=== PATIENT | male | born 1965 | race African-American/Black ===

== ENCOUNTER 2020-01-09 15:24 | Inpatient (IN) | payer MEDICARE, MEDICAID, OTHER ==
[~2020-01-09] VITALS: Ht 180.3 cm; Wt 162.5 kg
[2020-01-09] MEDS ORDERED: FUROSEMIDE 100MG/10ML VIAL IVP ONE (17:00)
[2020-01-09 17:29] LABS: BASOPHILS % 1.4 % (0.0-2.0); EOSINOPHILS % 6.7 % (0.0-5.0); HEMATOCRIT. 27.7 % (42.0-52.0); HEMOGLOBIN. 8.8 g/dL (14.0-18.0); LYMPHOCYTES % 9.9 % (20.0-50.0); MEAN CORPUSCULAR HEMOGLOBIN 23.7 pg (28.0-32.0); MEAN CORPUSCULAR VOLUME 74.4 fL (80.0-94.0); MEAN PLATELET VOLUME 7.8 fl (7.4-10.4); MONOCYTES % 12.8 % (2.0-8.0); NEUTROPHILS % 69.2 % (40.0-76.0); PLATELET 163 x1000/uL (130-400); RED BLOOD CELL COUNT 3.72 mill/uL (4.7-6.1); RED CELL DISTRIBUTION WIDTH 19.2 % (11.6-14.6)
[2020-01-09 17:36] LABS: CHLORIDE 107 mEq/L (98-107)
[2020-01-09 17:37] LABS: INR 1.3; PROTHROMBIN TIME 13.9 sec (9.6-11.0)
[2020-01-09] MEDS ORDERED: FUROSEMIDE 40MG/4ML VIAL IVP SCH (18:30)
[2020-01-09] MEDS ORDERED: ACETAMINOPHEN 325MG TABLET PO PRN (18:30)
[2020-01-09] MEDS ORDERED: POTASSIUM CHLORIDE 20MEQ TABLET SR PO NR (18:30)
[2020-01-09] MEDS ORDERED: HYDROCODONE/ACETAMINOPHEN 5/325MG TABLET PO PRN (18:30)
[2020-01-09] MEDS ORDERED: DOCUSATE SODIUM 100MG CAPSULE PO PRN (18:30)
[2020-01-09] MEDS ORDERED: CLONIDINE 0.1MG TABLET PO PRN (18:30)
[2020-01-09] MEDS ORDERED: IPRATROPIUM/ALBUTEROL 0.5-3(2.5)MG/3ML NEB HHN PRN (18:30)
[2020-01-09] MEDS ORDERED: ONDANSETRON HCL 4MG/2ML INJ IV PRN (18:30)
[2020-01-09] MEDS ORDERED: LORAZEPAM 0.5MG TABLET PO PRN (18:30)
[2020-01-09 23:20] LABS: CLARITY URINE CLEAR (CLEAR); COLOR URINE YELLOW (YELLOW); KETONES URINE NEGATIVE (NEGATIVE); LEUKOCYTE ESTERASE URINE NEGATIVE (NEGATIVE); NITRITE URINE NEGATIVE (NEGATIVE); OCCULT BLOOD URINE NEGATIVE (NEGATIVE); PH URINE 6.5 (4.5-8.0); PROTEIN URINE NEGATIVE (NEGATIVE); UROBILINOGEN URINE 0.2 E.U./dL (0.2-1.0)
[2020-01-10 00:30] VITALS: BP 118/79
[2020-01-10] MEDS ORDERED: POTA10CA42 PO (02:22)
[2020-01-10] MEDS ORDERED: RIVA20TA PO (02:22)
[2020-01-10] MEDS ORDERED: BUME2TAB34 PO (02:22)
[2020-01-10] MEDS ORDERED: ALLO100T PO ×2 (02:22)
[2020-01-10] MEDS ORDERED: MV-M1TAB19 PO (02:22)
[2020-01-10] MEDS ORDERED: HYDR25TA PO (02:22)
[2020-01-10] MEDS ORDERED: SPIR25TA6 PO (02:22)
[2020-01-10] MEDS ORDERED: ASPI-986 MT (02:22)
[2020-01-10] MEDS ORDERED: DIGO125T80 PO (02:22)
[2020-01-10] MEDS: FUROSEMIDE 100MG/10ML VIAL IVP SCH ×2 (06:32→17:35)
[2020-01-10] MEDS ORDERED: FUROSEMIDE 40MG/4ML VIAL IVP SCH (07:15)
[2020-01-10 08:00] VITALS: BP 115/73
[2020-01-10 08:09] LABS: BASOPHILS % 1.5 % (0.0-2.0); EOSINOPHILS % 7.7 % (0.0-5.0); HEMATOCRIT. 28.6 % (42.0-52.0); HEMOGLOBIN. 9.4 g/dL (14.0-18.0); MEAN CORPUSCULAR HEMOGLOBIN 24.4 pg (28.0-32.0); MEAN CORPUSCULAR VOLUME 74.7 fL (80.0-94.0); MEAN PLATELET VOLUME 8.3 fl (7.4-10.4); NEUTROPHILS % 65.8 % (40.0-76.0); PLATELET 158 x1000/uL (130-400); RED BLOOD CELL COUNT 3.83 mill/uL (4.7-6.1); RED CELL DISTRIBUTION WIDTH 19.1 % (11.6-14.6)
[2020-01-10 08:47] LABS: PHOSPHORUS 5.5 mg/dL (2.5-4.9)
[2020-01-10 09:01] LABS: FOLIC ACID (FOLATE) SERUM 7.2 ng/mL (>5.38)
[2020-01-10] MEDS: POTASSIUM CHLORIDE 20MEQ TABLET SR PO SCH (10:16)
[2020-01-10 12:10] VITALS: BP 108/72
[2020-01-10] MEDS ORDERED: FERROUS SULFATE 325MG TABLET PO SCH (12:50)
[2020-01-10] MEDS: APIXABAN 5 MG TABLET PO SCH ×2 (14:30→20:22)
[2020-01-10 16:00] VITALS: BP 112/84
[2020-01-10] MEDS: IRON SUCROSE COMPLEX 100 MG/5 ML ML IV SCH (17:35)
[2020-01-10] MEDS ORDERED: METOCLOPRAMIDE HCL 10MG/2ML VIAL IV ONE (19:30)
[2020-01-10 20:23] VITALS: BP 116/73
[2020-01-10] MEDS: CARVEDILOL 3.125 MG TABLET PO SCH (20:23)
[2020-01-10 23:56] VITALS: BP 112/71
[2020-01-11 04:00] VITALS: BP 107/66
[2020-01-11 04:32] LABS: METHADONE URINE SCREEN NEGATIVE (NEGATIVE)
[2020-01-11 04:33] LABS: *AMPHETAMINES SCREEN URINE NEGATIVE (NEGATIVE); *BARBITURATES SCREEN URINE NEGATIVE (NEGATIVE); *BENZODIAZEPINES SCREEN URINE NEGATIVE (NEGATIVE); *COCAINE SCREEN URINE NEGATIVE (NEGATIVE); CANNABINOID URINE SCREEN NEGATIVE (NEGATIVE); OPIATES URINE SCREEN NEGATIVE (NEGATIVE); PHENCYCLIDINE URINE SCREEN NEGATIVE (NEGATIVE)
[2020-01-11] MEDS: FUROSEMIDE 100MG/10ML VIAL IVP SCH ×2 (06:40→17:08)
[2020-01-11 08:00] VITALS: BP 112/90
[2020-01-11] MEDS: POTASSIUM CHLORIDE 20MEQ TABLET SR PO SCH (09:50)
[2020-01-11] MEDS: APIXABAN 5 MG TABLET PO SCH ×2 (09:51→17:07)
[2020-01-11] MEDS: CARVEDILOL 3.125 MG TABLET PO SCH ×2 (09:55→21:00)
[2020-01-11 11:00] LABS: BASOPHILS % 1.3 % (0.0-2.0); EOSINOPHILS % 10.5 % (0.0-5.0); HEMATOCRIT. 27.9 % (42.0-52.0); LYMPHOCYTES % 11.7 % (20.0-50.0); MEAN CORPUSCULAR HEMOGLOBIN 23.7 pg (28.0-32.0); MEAN CORPUSCULAR VOLUME 73.6 fL (80.0-94.0); MONOCYTES % 10.7 % (2.0-8.0); NEUTROPHILS % 65.8 % (40.0-76.0); PLATELET 155 x1000/uL (130-400); RED BLOOD CELL COUNT 3.79 mill/uL (4.7-6.1); RED CELL DISTRIBUTION WIDTH 18.7 % (11.6-14.6)
[2020-01-11 11:46] LABS: PHOSPHORUS 4.1 mg/dL (2.5-4.9)
[2020-01-11 11:59] VITALS: BP 112/90
[2020-01-11 12:00] VITALS: BP 101/57
[2020-01-11 16:15] VITALS: BP 104/56
[2020-01-11] MEDS ORDERED: POTASSIUM CHLORIDE 20MEQ TABLET SR PO NR (16:30)
[2020-01-11] MEDS: IRON SUCROSE COMPLEX 100 MG/5 ML ML IV SCH (17:07)
[2020-01-11] MEDS: AMIODARONE HCL 200 MG TABLET PO SCH (19:00)
[2020-01-11 20:42] VITALS: BP 101/60
[2020-01-12] VITALS (7 sets, daily range): BP systolic 98–130; BP diastolic 50–72
[2020-01-12] MEDS: FUROSEMIDE 100MG/10ML VIAL IVP SCH ×3 (06:19→17:27)
[2020-01-12 07:27] LABS: BASOPHILS % 1.4 % (0.0-2.0); EOSINOPHILS % 11.8 % (0.0-5.0); HEMATOCRIT. 29.8 % (42.0-52.0); HEMOGLOBIN. 9.5 g/dL (14.0-18.0); LYMPHOCYTES % 11.1 % (20.0-50.0); MEAN CORPUSCULAR HEMOGLOBIN 24.3 pg (28.0-32.0); MEAN CORPUSCULAR VOLUME 75.9 fL (80.0-94.0); MEAN PLATELET VOLUME 8.9 fl (7.4-10.4); MONOCYTES % 10.7 % (2.0-8.0); PLATELET 134 x1000/uL (130-400); RED BLOOD CELL COUNT 3.93 mill/uL (4.7-6.1)
[2020-01-12] MEDS: AMIODARONE HCL 200 MG TABLET PO SCH ×2 (08:55→17:27)
[2020-01-12] MEDS: CARVEDILOL 3.125 MG TABLET PO SCH ×2 (08:55→21:16)
[2020-01-12] MEDS: POTASSIUM CHLORIDE 20MEQ TABLET SR PO SCH ×2 (08:56→17:27)
[2020-01-12] MEDS: APIXABAN 5 MG TABLET PO SCH ×2 (08:56→17:27)
[2020-01-12 09:33] LABS: PHOSPHORUS 3.8 mg/dL (2.5-4.9)
[2020-01-12] MEDS ORDERED: POTASSIUM CHLORIDE 20MEQ TABLET SR PO SCH (11:30)
[2020-01-12] MEDS: IRON SUCROSE COMPLEX 100 MG/5 ML ML IV SCH ×2 (17:28→18:00)
[2020-01-13 00:31] VITALS: BP 102/57
[2020-01-13 04:51] VITALS: BP 108/51
[2020-01-13] MEDS: FUROSEMIDE 100MG/10ML VIAL IVP SCH ×2 (06:18→17:41)
[2020-01-13 06:59] LABS: PHOSPHORUS 3.8 mg/dL (2.5-4.9)
[2020-01-13 07:42] LABS: BASOPHILS % 1.3 % (0.0-2.0); EOSINOPHILS % 12.7 % (0.0-5.0); HEMOGLOBIN. 10.1 g/dL (14.0-18.0); MEAN CORPUSCULAR HEMOGLOBIN 23.8 pg (28.0-32.0); MEAN CORPUSCULAR VOLUME 75.1 fL (80.0-94.0); MEAN PLATELET VOLUME 8.7 fl (7.4-10.4); MONOCYTES % 10.4 % (2.0-8.0); NEUTROPHILS % 63.6 % (40.0-76.0); PLATELET 198 x1000/uL (130-400); RED BLOOD CELL COUNT 4.26 mill/uL (4.7-6.1); RED CELL DISTRIBUTION WIDTH 19.2 % (11.6-14.6)
[2020-01-13 08:20] VITALS: BP 108/74
[2020-01-13] MEDS: CARVEDILOL 3.125 MG TABLET PO SCH ×2 (09:00→21:00)
[2020-01-13] MEDS: APIXABAN 5 MG TABLET PO SCH ×2 (09:02→17:40)
[2020-01-13] MEDS: POTASSIUM CHLORIDE 20MEQ TABLET SR PO SCH ×2 (09:02→17:41)
[2020-01-13] MEDS: AMIODARONE HCL 200 MG TABLET PO SCH ×2 (09:03→17:40)
[2020-01-13 12:00] VITALS: BP 121/91
[2020-01-13 16:00] VITALS: BP 104/63
[2020-01-13 20:00] VITALS: BP 102/66
[2020-01-14] VITALS: BP 109/64
[2020-01-14 04:00] VITALS: BP 106/71
[2020-01-14] MEDS: FUROSEMIDE 100MG/10ML VIAL IVP SCH (05:13)
[2020-01-14 06:56] LABS: BASOPHILS % 0.8 % (0.0-2.0); EOSINOPHILS % 11.8 % (0.0-5.0); HEMATOCRIT. 31.5 % (42.0-52.0); LYMPHOCYTES % 13.1 % (20.0-50.0); MEAN CORPUSCULAR HEMOGLOBIN 24.1 pg (28.0-32.0); MEAN CORPUSCULAR VOLUME 75.8 fL (80.0-94.0); MEAN PLATELET VOLUME 8.5 fl (7.4-10.4); MONOCYTES % 8.8 % (2.0-8.0); NEUTROPHILS % 65.5 % (40.0-76.0); PLATELET 178 x1000/uL (130-400); RED BLOOD CELL COUNT 4.15 mill/uL (4.7-6.1); RED CELL DISTRIBUTION WIDTH 19.1 % (11.6-14.6)
[2020-01-14 08:00] VITALS: BP 116/72
[2020-01-14] MEDS: APIXABAN 5 MG TABLET PO SCH (08:38)
[2020-01-14] MEDS: AMIODARONE HCL 200 MG TABLET PO SCH (08:39)
[2020-01-14] MEDS: POTASSIUM CHLORIDE 20MEQ TABLET SR PO SCH (08:39)
[2020-01-14] MEDS: CARVEDILOL 3.125 MG TABLET PO SCH (08:41)
[2020-01-14 12:00] VITALS: BP 135/66
[2020-01-14] MEDS ORDERED: FURO40TA5 MT (12:18)
[2020-01-14] MEDS ORDERED: AMI2 PO (12:18)
[2020-01-14] MEDS ORDERED: POTA20TA82 MT (12:18)
[2020-01-14] MEDS ORDERED: COR3 PO (12:18)
[2020-01-14] MEDS ORDERED: APIX5TAB PO (12:18)
[2020-01-14 14:11] VITALS: BP 135/66
[2020-01-14 16:00] VITALS: BP 115/76
[2020-01-14] MEDS ORDERED: FUROSEMIDE 40MG/4ML VIAL IVP SCH (17:15)
== END 2020-01-14 17:45 | disposition home health service (06) | DRG 291 ==
LOC: ER 15:24 → 6WST 18:19 → EDBEDREQTM 18:22 → EDBEDREQ 18:22 → ENRESERV 20:12
PROVIDERS: ADMIT Internal Medicine; ATTEND Internal Medicine
DX: I13.0 Hypertensive heart and chronic kidney disease with heart failure and stage 1 through stage 4 chronic kidney disease, or unspecified chronic kidney disease (principal); I50.23 Acute on chronic systolic (congestive) heart failure; E43 Unspecified severe protein-calorie malnutrition; N17.9 Acute kidney failure, unspecified; I48.20 Chronic atrial fibrillation, unspecified; Z68.43 Body mass index [BMI] 50.0-59.9, adult; I42.9 Cardiomyopathy, unspecified; N18.9 Chronic kidney disease, unspecified; D50.9 Iron deficiency anemia, unspecified; D72.1 Eosinophilia; D72.810 Lymphocytopenia; E66.01 Morbid (severe) obesity due to excess calories; E87.6 Hypokalemia; I27.20 Pulmonary hypertension, unspecified; I36.1 Nonrheumatic tricuspid (valve) insufficiency; I25.118 Atherosclerotic heart disease of native coronary artery with other forms of angina pectoris; Z82.49 Family history of ischemic heart disease and other diseases of the circulatory system; Z86.73 Personal history of transient ischemic attack (TIA), and cerebral infarction without residual deficits; Z95.810 Presence of automatic (implantable) cardiac defibrillator; Z79.01 Long term (current) use of anticoagulants; Z95.1 Presence of aortocoronary bypass graft
CPT/HCPCS: 36415; 71045; 76770; 76870; 80048; 80053; 80305; 81003; 82010; 82550; 82607; 82728; 82746; 83540; 83550; 83735; 83880; 84100; 84484; 85025; 93005; 93306; 93976; 96374; 97116; 97162; 99285; J1940; J2765